=== PATIENT | female | born 1995 | race African-American/Black ===

== ENCOUNTER 2017-04-14 10:36 | Emergency (ER) | payer BC, OTHER ==
[2017-04-14 10:53] VITALS: BP 140/81; PULSE 80; TEMP 98.3; BMI 25.7
--- NOTE | 2017-04-14 11:04 | PDOC ---
History of Present Illness - General Chief Complaint: Cold Symptoms Stated Complaint: COUGH Time Seen by Provider: 04/14/17 11:01 - History of Present Illness Initial Comments: 04/14/17 11:03 21 yo F with no significant pmh who presents with cough. States that she had worsening non productive cough over the past week. Reports 2 episodes of non biliary non bloody emesis yesterday. Endorses myalgias, and recovering from respiratory/sinus illness 3 weeks ago. Reports subjective fevers intermittently through past week. Substernal chest pain from cough. Currently denies pleuritic chest pain, SOB, wheezing, pharyngitis, sinus congestion or pain, ear pain, rhinorhea, postnasal drip, urinary or GI/abdominal complaints. States that she has attempted Tylenol, dextromethorphan, losenges, with little to no relief.Recent sick contact sister with bronchitis treated with antibiotics. Denies h/o asthma. Past History - Past Medical History Allergies/Adverse Reactions: Allergies Allergy/AdvReac Type Severity Reaction Status Date / Time No Known Allergies Allergy Verified 04/14/17 10:51 Home Medications: Ambulatory Orders Albuterol Sulfate Inhaler - [Ventolin Hfa Inhaler -] 1 puff IH QID PRN #1 inhaler 04/14/17 Azithromycin 250 mg PO DAILY 4 Days #4 tablet MDD 1 tab 04/14/17 Asthma: Yes (as a child) Cancer: No Cardiac Disorders: No COPD: No Diabetes: No HTN: No Seizures: No Thyroid Disease: No - Suicide/Smoking/Psychosocial Hx Smoking Status: No Smoking History: Never smoked Have you smoked in the past 12 months: No Number of Cigarettes Smoked Daily: 0 Information on smoking cessation initiated: No Hx Alcohol Use: No Drug/Substance Use Hx: No Substance Use Type: None Hx Substance Use Treatment: No Review of Systems - Review of Systems Comments:: 04/14/17 11:04 GENERAL/CONSTITUTIONAL: No fever or chills. No weakness. HEAD, EYES, EARS, NOSE AND THROAT: No change in vision. No ear pain or discharge. No sore throat.- CARDIOVASCULAR: No chest pain or shortness of breath RESPIRATORY: + cough. No wheezing, or hemoptysis. GASTROINTESTINAL: No nausea, vomiting, diarrhea or constipation. GENITOURINARY: No dysuria, frequency, or change in urination. MUSCULOSKELETAL: + Myalgias. No joint swelling or pain. No neck or back pain. SKIN: No rash NEUROLOGIC: No headache, vertigo, loss of consciousness, or change in strength/ sensation. ENDOCRINE: No increased thirst. No abnormal weight change HEMATOLOGIC/LYMPHATIC: No anemia, easy bleeding, or history of blood clots. ALLERGIC/IMMUNOLOGIC: No hives or skin allergy. *Physical Exam - Vital Signs Last Vital Signs Temp Pulse Resp BP Pulse Ox 98.3 F 80 19 140/81 100 04/14/17 10:48 04/14/17 10:48 04/14/17 10:48 04/14/17 10:48 04/14/17 10:48 - Physical Exam Comments: 04/14/17 11:04 GENERAL: Awake, alert, and fully oriented, in no acute distress HEAD: No signs of trauma, normocephalic, atraumatic EYES: PERRLA, EOMI, sclera anicteric, conjunctiva clear ENT: Auricles normal inspection, hearing grossly normal, nares patent, oropharynx clear without exudates. Mild posterior oropharynx erythema. Moist mucosa NECK: Normal ROM, supple, no lymphadenopathy, JVD, or masses LUNGS: No distress, speaks full sentences, clear to auscultation bilaterally HEART: Regular rate and rhythm, normal S1 and S2, no murmurs, rubs or gallops, peripheral pulses normal and equal bilaterally. EXTREMITIES : Normal inspection, Normal range of motion, no edema. No clubbing or cyanosis. SKIN: Warm, Dry, normal turgor, no rashes or lesions noted. Medical Decision Making - Medical Decision Making 04/14/17 11:38 21 yo F with no significant pmh who presents with 1 week of non productive cough following respiratory/sinus illness 3 weeks ago. Also endorses episodes of non biliary non bloody emesis yesterday evening. Symptoms associated with myalgias, subjective fevers, and susbternal chest pain. No respiratory complaints. Physical exam was benign and patient hemodynamically stable. Recent sick contact sister with bronchitis treated with antibiotics. Denies h/o asthma. Patient most likely with viral bronchitis. ED Course: Urine HCG Neg CXR: No acute cardiopulmonary pathology Patient stable for D/c with return precautions. Sent azithromycin and albuterol to pt. pharmacy. *DC/Admit/Observation/Transfer Diagnosis at time of Disposition: Bronchitis - Discharge Dispostion Disposition: HOME Condition at time of disposition: Stable Admit: No - Prescriptions Prescriptions: Albuterol Sulfate Inhaler - [Ventolin Hfa Inhaler -] 1 puff IH QID PRN #1 inhaler PRN Reason: Asthma Azithromycin 250 mg PO DAILY 4 Days #4 tablet MDD 1 tab - Referrals - Patient Instructions Printed Discharge Instructions: DI for Viral Upper Respiratory Infection-Child Additional Instructions: Please return to the emergency department if you develop new or worsening symptoms or new concerns. Please follow up with primary care physician within 1 week if symptoms persist. Continue symptom management with over the counter NSAID/ Ibuprofen and Tylenol. - Post Discharge Activity - Attestations Physician Attestion: 04/14/17 11:55 I attest to the information provided in this note.
--- NOTE | 2017-04-14 11:24 | PDOC ---
Attending Attestation - Resident Resident Name: Raymond Ayala - ED Attending Attestation I have performed the following: I have examined & evaluated the patient, The case was reviewed & discussed with the resident, I agree w/resident's findings & plan, Exceptions are as noted - HPI HPI: 04/14/17 11:27 21yo F no sig PMH p/w cough. Reports 1 week ago developed non prod cough that has increased in frequency since last week. Reports 2 episodes of NBNB emesis yesterday after coughing. 1 week ago also had rhinorrhea and congestion that has since resolved. Also reports subjective fevers. Tried dextromethorphan and halls cough drops which help. Also taking tylenol. Sister has been diagnosed with bronchitis. Has not seen her PMD. Denies CP, sob, abd pain, rashes, dysuria, bleeding, headache, weakness. - Physicial Exam PE: 04/14/17 11:34 GENERAL: Awake, alert, and fully oriented, in no acute distress HEAD: No signs of trauma EYES: PERRLA, EOMI, sclera anicteric, conjunctiva clear ENT: Auricles normal inspection, hearing grossly normal, nares patent, oropharynx clear with mild erythema but no exudates. Moist mucosa NECK: Normal ROM, supple, no lymphadenopathy, JVD, or masses LUNGS: Breath sounds equal, clear to auscultation bilaterally. No wheezes, and no crackles HEART: Regular rate and rhythm, normal S1 and S2, no murmurs, rubs or gallops ABDOMEN: Soft, nontender, normoactive bowel sounds. No guarding, no rebound. No masses EXTREMITIES: Normal range of motion, no edema. No clubbing or cyanosis. No cords, erythema, or tenderness NEUROLOGICAL: Normal speech, cranial nerves intact, negative pronator drift, 5/ 5 strength in all 4 extremities, normal sensation to light touch in all 4 extremities, normal cerebellar exam, normal gait, normal reflexes and tone SKIN: Warm, Dry, normal turgor, no rashes or lesions noted. - Medical Decision Making 04/14/17 11:35 21-year-old female presents with URI symptoms complaining of cough and posttussive emesis yesterday. Vitals are unremarkable. Exam is unremarkable. Likely bronchitis, will check CXR to r/o PNA -UPT -CXR -likely DC 04/14/17 13:19 UPT neg, CXR clear. Given first dose azithro for bronchitis, prescribed azithro and albuterol for symptomatic control. I discussed the physical exam findings, ancillary test results and final diagnoses with the patient. I answered all of the patient's questions. The patient was satisfied with the care received and felt comfortable with the discharge plan and treatment plan. The patient will call their primary care physician within 24 hours to arrange follow-up and will return to the Emergency Department with any new, persistent or worsening symptoms.
[2017-04-14] MEDS ORDERED: AZITHROMYCIN 500 MG TABLET PO ONE (12:24)
[2017-04-14] MEDS ORDERED: AZITHROMYCIN 500 MG TABLET ONE (12:28)
== END 2017-04-14 13:37 | disposition home or self-care (01) ==
LOC: JERFT 10:36 → JER 10:36
DX: J40 Bronchitis, not specified as acute or chronic (principal)
CPT/HCPCS: 71020-TC; 84703; 99282-25

== ENCOUNTER 2017-10-08 11:45 | Emergency (ER) | payer BC, OTHER ==
[2017-10-08 12:01] VITALS: BP 114/73; PULSE 87; TEMP 98.4; BMI 25.7
[2017-10-08 12:46] LABS: URINE APPEARANCE CLOUDY; URINE BILIRUBIN NEGATIVE (<2.0 mg/dL); URINE COLOR AMBER; URINE GLUCOSE (UA) NEGATIVE (NEGATIVE); URINE KETONE NEGATIVE (NEGATIVE); URINE LEUK ESTERASE NEGATIVE (NEGATIVE); URINE NITRITE NEGATIVE (NEGATIVE); URINE UROBILINOGEN 4.0 E.U/dl mg/dL (0.2-1.0)
[2017-10-08 12:47] LABS: HCG,QUALITATIVE URINE NEGATIVE
[2017-10-08 12:48] LABS: URINE PROTEIN 1+ (NEGATIVE)
[2017-10-08 12:50] LABS: EPI CELLS MANY /HPF (FEW); URINE BACTERIA MANY /hpf (NONE SEEN); URINE MUCUS MANY
--- NOTE | 2017-10-08 12:59 | PDOC ---
History of Present Illness - General Chief Complaint: Pain, Acute Stated Complaint: ABD PAIN Time Seen by Provider: 10/08/17 12:20 History Source: Patient Exam Limitations: No Limitations - History of Present Illness Initial Comments: This is a 21 year old (one prior elective ) with h/o chronic mild constipation who p/w RLQ abdominal pain intermittently for the past two months, worse in the past day or so. She describes the pain as sharp, fluctuating up to 7/10, radiating to her lower back and occasionally down her leg, and worsened with being overly active. She believes that the pain worsened because she was doing laundry all day yesterday, and it became so bad this morning while she was sitting at work that she told her boss about it and was encouraged by them to come into the ED. She notes increased amount of her otherwise normal- appearing non-malodorous vaginal discharge over the past two weeks and was treated by her OB doctor for presumed BV. She took a one-pill course of metronidazole (per the patient's report) one week ago, and was still having symptoms so the OB doctor prescribed Tindamax 4 pills/day for a 2-day course ( just finished the second day). She notes that she has not had a pelvic exam for her symptoms. She notes unchanged chronic constipation and her last BM was 2 days ago, and was otherwise normal (non-bloody and not black). She denies fever , chills, nausea, vomiting, diarrhea, headache, lightheadedness, chest pain, palpitations, SOB, etc. She is currently on her menstrual period. Past History - Past Medical History Allergies/Adverse Reactions: Allergies Allergy/AdvReac Type Severity Reaction Status Date / Time No Known Allergies Allergy Verified 10/08/17 11:57 Home Medications: Ambulatory Orders Albuterol Sulfate Inhaler - [Ventolin Hfa Inhaler -] 1 puff IH QID PRN #1 inhaler 04/14/17 Azithromycin 250 mg PO DAILY 4 Days #4 tablet MDD 1 tab 04/14/17 Asthma: Yes (as a child) Cancer: No Cardiac Disorders: No COPD: No DVT: No Diabetes: No HTN: No Seizures: No Thyroid Disease: No - Suicide/Smoking/Psychosocial Hx Smoking Status: No Smoking History: Never smoked Have you smoked in the past 12 months: No Number of Cigarettes Smoked Daily: 0 Information on smoking cessation initiated: No Hx Alcohol Use: No Drug/Substance Use Hx: No Substance Use Type: None Hx Substance Use Treatment: No Review of Systems - Review of Systems Able to Perform ROS?: Yes Constitutional: No: Chills, Fever, Unexplained wgt Loss HEENTM: No: Nose Congestion, Throat Pain Respiratory: No: Cough, Shortness of Breath Cardiac (ROS): No: Chest Pain, Palpitations ABD/GI: Yes: Constipated (unchanged chronic), Other (abdominal pain). No: Diarrhea, Nausea, Vomiting : Yes: Frequency, Other (vaginal discharge). No: Burning, Dysuria Musculoskeletal: Yes: Back Pain (chronic but worsened lower). No: Neck Pain Integumentary: No: Bruising, Rash Neurological: No: Headache, Numbness, Tingling, Weakness, Dizziness Endocrine: No: Unexplained Weight Gain, Unexplained Weight Loss *Physical Exam - Vital Signs Last Vital Signs Temp Pulse Resp BP Pulse Ox 98.4 F 87 18 114/73 100 10/08/17 11:58 10/08/17 11:58 10/08/17 11:58 10/08/17 11:58 10/08/17 11:58 - Physical Exam General Appearance: Yes: Nourished, Appropriately Dressed, Other (well- appearing and nontoxic young adult female who is pleasant, slightly anxious, answering questions appropriately, no distress, appears comfortable) HEENT: positive: EOMI, [place], Normal Voice, Hearing Grossly Normal. negative: Scleral Icterus (R), Scleral Icterus (L), Nasal Congestion Neck: positive: Trachea midline, Supple. negative: Tender, Rigid Respiratory/Chest: positive: Lungs Clear, Normal Breath Sounds. negative: Respiratory Distress, Crackles, Rhonchi, Stridor, Wheezing Cardiovascular: positive: Regular Rhythm, Regular Rate, S1, S2. negative: Edema , JVD, Murmur Female Pelvic Exam: positive: other (Pelvic exam with physiologic white discharge, os is closed, no CMT, mild right adnexal tenderness) Gastrointestinal/Abdominal: positive: Normal Bowel Sounds, Tender (minimal RLQ ttp just superior to the inguinal crease), Flat, Soft. negative: Organomegaly, Pulsatile Mass, Guarding Musculoskeletal: positive: Normal Inspection. negative: CVA Tenderness, Decreased Range of Motion, Vertebral Tenderness Extremity: positive: Normal Capillary Refill, Normal Inspection, Normal Range of Motion. negative: Tender, Cyanosis Integumentary: positive: Normal Color, Dry, Warm. negative: Erythema, Rash, Bruising Neurologic: positive: field applications specialist II-XII NML intact (grossly), Fully Oriented, Alert, Normal Mood/Affect, Normal Response, Motor Strength 5/5, Other (no tenderness to deep compression of the sciatic nerve) ED Treatment Course - LABORATORY CBC & Chemistry Diagram: 10/08/17 13:15 10/08/17 13:15 - ADDITIONAL ORDERS Additional order review: Laboratory Results 10/08/17 12:25 Urine Color [place] Urine Appearance Cloudy Urine pH 6.0 Ur Specific [place] 1.032 Urine Protein 1+ H Urine Glucose (UA) Negative Urine Ketones Negative Urine Blood Negative Urine Nitrite Negative Urine Bilirubin Negative Urine Urobilinogen 4.0 e.u/dl H Ur Leukocyte Esterase Negative Urine HCG, Qual Negative Medical Decision Making - Medical Decision Making Adult female patient p/w RLQ pain, back pain, vaginal discharge. Initial Vital Signs Temp Pulse Resp BP Pulse Ox 98.4 F 87 18 114/73 100 10/08/17 11:58 10/08/17 11:58 10/08/17 11:58 10/08/17 11:58 10/08/17 11:58 Exam: Mild RLQ ttp, abdomen soft, no guarding, no rebound, no CVA ttp, no right sciatic nerve ttp. Pelvic exam with physiologic white discharge, os is closed, no CMT, mild right adnexal tenderness. DDX IBNLT: ruptured ovarian cyst, large symptomatic ovarian cyst, ovarian torsion, appendicitis, ectopic , PID/TOA, cervicitis, UTI/ pyelonephritis, renal colic, hernia, cholecystitis, pancreatitis, gastritis, PUD , endometritis, malignancy, diverticulitis wwo abscess or perforation, colitis, regional ileitis (Crohns disease), SBO, bowel ischemia, bowel perforation, constipation, musculoskeletal, dysmenorrhea, endometriosis, fibroids, etc. W/U ordered: CBCD CMP GC/Chlam/trich amplification (cervical swab), GC culture, transvaginal US [place] ordered: IVF Unlikely ovarian torsion as patient has no adnexal ttp on bimanual exam. Unlikely ovarian cyst as patient denies h/o ovarian cysts, unlikely hemorrhagic as pt denies sxs of anemia. Unlikely ectopic at patient denies known , no prior procedure or infection. Unlikely PID/TOA/cervicitis as patient denies h/o STIs, no report of abnormal discharge no adnexal ttp Unlikely endometritis as patient is not recently , no procedures, no abnormal discharge. Unlikely hernia as there is no outwardly palpable lump. Unlikely cholecystitis as no postprandial worsening. Unlikely appendicitis as pt has no fever, no anorexia, no marked RLQ or umbilical ttp. Unlikely diverticulitis as patient has no known h/o diverticulosis/ diverticulitis. Unlikely colitis as clinically pts abdomen is not distended/no ascites, no fever, other VS wnl. Laboratory Tests 10/08/17 10/08/17 10/08/17 12:25 13:15 13:15 WBC 5.3 D RBC 4.00 D Hgb 12.8 D Hct 37.0 D MCV 92.4 MCH 32.0 MCHC 34.7 RDW 12.6 D Plt Count 244 D MPV 9.2 Neutrophils % 55.2 D Lymphocytes % 33.6 D Monocytes % 9.9 Eosinophils % 0.6 Basophils % 0.7 D Sodium 139 Potassium 4.9 Chloride 107 Carbon Dioxide 28 Anion Gap 4 L BUN 11 Creatinine 0.8 Creat Clearance w eGFR > 60 Random Glucose 83 Calcium 9.3 Total Bilirubin 0.5 AST 12 L ALT 17 Alkaline Phosphatase 48 Total Protein 7.4 Albumin 4.3 Urine Color [place] Urine Appearance Cloudy Urine pH 6.0 Ur Specific [place] 1.032 Urine Protein 1+ H Urine Glucose (UA) Negative Urine Ketones Negative Urine Blood Negative Urine Nitrite Negative Urine Bilirubin Negative Urine Urobilinogen 4.0 e.u/dl H Ur Leukocyte Esterase Negative Urine WBC (Auto) 2 Urine RBC (Auto) 1 Ur Epithelial Cells Many Urine Bacteria Many Urine Mucus Many Urine HCG, Qual Negative Reassessment: Patient's abdominal pain has much improved, repeat abdominal exam benign. The patient has her US completed but will not stay for official report to result. She signs AMA after discussion on risks of leaving without diagnosis for the abdominal pain. She understands the risks, has decision making capacity, is walking unassisted, repeat exam was benign. She is advised to return to the ED [facility] for her results and to f/u with her outpatient provider(s). *DC/Admit/Observation/Transfer Diagnosis at time of Disposition: Abdominal pain Qualifiers: Abdominal location: right lower quadrant Qualified Code(s): R10.31 - Right lower quadrant pain - Discharge Dispostion Disposition: AGAINST MEDICAL ADVICE Condition at time of disposition: Improved Decision to Admit order: No - Referrals Referrals: Zuleima Diggs DO [Primary Care Provider] - - Patient Instructions Additional Instructions: You were seen in the ER for abdominal pain. We did laboratory work on your blood and urine and gave you a liter of IV fluids. We did an ultrasound, but you needed to leave against medical advice before the results came back. You signed a paper stating that you understand the risks of leaving without having all the results back. Please come back to the ER if you change your mind. Please follow up with your regular PCP doctor in 1-3 days. Call their clinic as soon as possible, tell them you were seen in the ER, and tell them you need an appointment. If you have any new or worsening symptoms, please come back to the ER at any time (24 hours a day). If you are having severe or life threatening symptoms, or symptoms that make it unsafe to drive or have someone drive you, please call 911. - Post Discharge Activity Forms/Work/School Notes: Back to Work
[2017-10-08] MEDS ORDERED: SODIUM CHLORIDE 0.9% 500 ML INFUS.BAG IV ONE (13:09)
--- NOTE | 2017-10-08 13:18 | PDOC ---
Attending Attestation - Resident Resident Name: WoodsLauren - ED Attending Attestation I have performed the following: I have examined & evaluated the patient, The case was reviewed & discussed with the resident, I agree w/resident's findings & plan, Exceptions are as noted - HPI HPI: 10/08/17 13:15 21-year-old female with no past medical history presents with right lower quadrant pain today. Patient reports we cannot this morning and feeling well. While she was at work and a meeting, she felt the sudden onset of a difficult to describe right mid lower abdominal pain. Denies dysuria, hematuria, fevers or chills or nausea or vomiting. Patient does report that she is 2 weeks after her menstrual period. She is not sexually active. Patient does report some mild clearish vaginal discharge but denies dysuria. Came into the ER for an evaluation. - Physicial Exam PE: 10/08/17 13:16 GENERAL: Awake, alert, and fully oriented, in no acute distress. HEAD: No signs of trauma EYES: PERRLA, EOMI, sclera anicteric, conjunctiva clear ENT: Auricles normal inspection, hearing grossly normal, nares patent ABDOMEN: Soft, mild TTP right mid suprapubic tenderness to palpation, mcburney point negative. No guarding, no rebound. No masses EXTREMITIES: Normal range of motion, no edema. No clubbing or cyanosis. No cords, erythema, or tenderness NEUROLOGICAL: Cranial nerves II through XII grossly intact. Normal speech, normal gait SKIN: Warm, Dry, normal turgor, no rashes or lesions noted. - Medical Decision Making 10/08/17 13:17 Vital Signs Temp Pulse Resp BP Pulse Ox 98.4 F 87 18 114/73 100 10/08/17 11:58 10/08/17 11:58 10/08/17 11:58 10/08/17 11:58 10/08/17 11:58 21-year-old female who presents with lower abdominal pain. I clinically suspect this is likely ruptured ovarian cyst. I have low suspicion for appendicitis despite the pain being a right lower abdomen. We'll obtain labs. The resident will perform a pelvic exam. We'll perform a transvaginal ultrasound. If the workup is unremarkable and the patient continues to have pain, we'll consider CT scan the abdomen pelvis to rule out appendicitis. 10/08/17 14:26 Urine Test Results Urine Color [place] 10/08/17 12:25 Urine Appearance Cloudy 10/08/17 12:25 Urine pH 6.0 (5.0-8.0) 10/08/17 12:25 Ur Specific [place] 1.032 (1.001-1.035) 10/08/17 12:25 Urine Protein 1+ (NEGATIVE) H 10/08/17 12:25 Urine Glucose (UA) Negative (NEGATIVE) 10/08/17 12:25 Urine Ketones Negative (NEGATIVE) 10/08/17 12:25 Urine Blood Negative (NEGATIVE) 10/08/17 12:25 Urine Nitrite Negative (NEGATIVE) 10/08/17 12:25 Urine Bilirubin Negative (<2.0 mg/dL) 10/08/17 12:25 Ur Leukocyte Esterase Negative (NEGATIVE) 10/08/17 12:25 Ur Epithelial Cells Many /HPF (FEW) 10/08/17 12:25 Urine Bacteria Many /hpf (NONE SEEN) 10/08/17 12:25 Urine Mucus Many 10/08/17 12:25 IRON PILER exam performed with Dr. Woods. External exam demonstrates physiologic discharge. 10/08/17 16:00 CBC, BMP 10/08/17 13:15 10/08/17 13:15 CMP Sodium 139 mmol/L (136-145) 10/08/17 13:15 Potassium 4.9 mmol/L (3.5-5.1) 10/08/17 13:15 Chloride 107 mmol/L (98-107) 10/08/17 13:15 Carbon Dioxide 28 mmol/L (21-32) 10/08/17 13:15 Anion Gap 4 (8-16) L 10/08/17 13:15 BUN 11 mg/dL (7-18) 10/08/17 13:15 Creatinine 0.8 mg/dL (0.55-1.02) 10/08/17 13:15 Creat Clearance w eGFR > 60 (>60) 10/08/17 13:15 Random Glucose 83 mg/dL (74-106) 10/08/17 13:15 Calcium 9.3 mg/dL (8.5-10.1) 10/08/17 13:15 Total Bilirubin 0.5 mg/dL (0.2-1.0) 10/08/17 13:15 AST 12 U/L (15-37) L 10/08/17 13:15 ALT 17 U/L (12-78) 10/08/17 13:15 Alkaline Phosphatase 48 U/L (45-117) 10/08/17 13:15 Total Protein 7.4 g/dl (6.4-8.2) 10/08/17 13:15 Albumin 4.3 g/dl (3.4-5.0) 10/08/17 13:15 Urine Test Results Urine Color [place] 10/08/17 12:25 Urine Appearance Cloudy 10/08/17 12:25 Urine pH 6.0 (5.0-8.0) 10/08/17 12:25 Ur Specific [place] 1.032 (1.001-1.035) 10/08/17 12:25 Urine Protein 1+ (NEGATIVE) H 10/08/17 12:25 Urine Glucose (UA) Negative (NEGATIVE) 10/08/17 12:25 Urine Ketones Negative (NEGATIVE) 10/08/17 12:25 Urine Blood Negative (NEGATIVE) 10/08/17 12:25 Urine Nitrite Negative (NEGATIVE) 10/08/17 12:25 Urine Bilirubin Negative (<2.0 mg/dL) 10/08/17 12:25 Ur Leukocyte Esterase Negative (NEGATIVE) 10/08/17 12:25 Ur Epithelial Cells Many /HPF (FEW) 10/08/17 12:25 Urine Bacteria Many /hpf (NONE SEEN) 10/08/17 12:25 Urine Mucus Many 10/08/17 12:25 Pt's ultrasound results have not resulted. 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 The patient is signing out AMA. She has capacity and is aware of the risks of leaving without a full evaluation. Otherwise, reports improved pain.
[2017-10-08 13:23] LABS: BASO % 0.7 % (0-2.0); EOS % 0.6 % (0-4.5); HEMOGLOBIN 12.8 GM/dL (10.7-15.3); LYMPH % 33.6 % (8-40); MCHC 34.7 g/dl (32.0-36.0); MEAN CELL VOLUME 92.4 fl (80-96); MEAN PLT VOLUME 9.2 fl (7.5-11.1); MONO % 9.9 % (3.8-10.2); NEUT % 55.2 % (42.8-82.8); PLATELET COUNT 244 K/MM3 (134-434); RDW 12.6 % (11.6-15.6); WHITE BLOOD COUNT 5.3 K/mm3 (4.0-10.0)
[2017-10-08 14:03] LABS: ALBUMIN 4.3 g/dl (3.4-5.0); ANION GAP 4 (8-16); BLOOD UREA NITROGEN 11 mg/dL (7-18); CALCIUM 9.3 mg/dL (8.5-10.1); CHLORIDE 107 mmol/L (98-107); CO2 28 mmol/L (21-32); CREATININE 0.8 mg/dL (0.55-1.02); GLUCOSE,RANDOM 83 mg/dL (74-106); POTASSIUM 4.9 mmol/L (3.5-5.1); SGOT/AST 12 U/L (15-37); SGPT/ALT 17 U/L (12-78); SODIUM 139 mmol/L (136-145)
[2017-10-08 14:04] LABS: ALK PHOS 48 U/L (45-117); BILIRUBIN,TOTAL 0.5 mg/dL (0.2-1.0); TOT PROT 7.4 g/dl (6.4-8.2)
== END 2017-10-08 16:22 | disposition left against medical advice (07) ==
LOC: JER 11:45
PROC: 3E0337Z Introduction of Electrolytic and Water Balance Substance into Peripheral Vein, Percutaneous Approach (ICD-10-PCS; principal; 2017-10-08)
DX: R10.31 Right lower quadrant pain (principal); K59.09 Other constipation
CPT/HCPCS: 36415; 76830-TC; 80053; 81003; 81015; 84703; 85025; 96374; 99283-25

== ENCOUNTER 2018-02-17 10:11 | Emergency (ER) | payer BC, OTHER ==
[2018-02-17 10:29] VITALS: BP 107/63; PULSE 77; TEMP 98.9; BMI 24.0
[2018-02-17] MEDS ORDERED: ACETAMINOPHEN 500 MG TABLET (FP) PO ONE (10:42)
[2018-02-17] MEDS ORDERED: ACETAMINOPHEN 500 MG TABLET (FP) ONE (10:47)
--- NOTE | 2018-02-17 10:48 | PDOC ---
History of Present Illness - General Chief Complaint: Sore Throat Stated Complaint: FEVER/STREP THROAT Time Seen by Provider: 02/17/18 10:35 History Source: Patient Exam Limitations: No Limitations - History of Present Illness Timing/Duration: unsure Severity: mild, moderate Past History - Travel Traveled outside of the country in the last 30 days: No Close contact w/someone who was outside of country & ill: No - Past Medical History Allergies/Adverse Reactions: Allergies Allergy/AdvReac Type Severity Reaction Status Date / Time No Known Allergies Allergy Verified 02/17/18 10:26 Home Medications: Ambulatory Orders NK [No Known Home Medication] 02/17/18 Asthma: Yes (as a child) Cancer: No Cardiac Disorders: No COPD: No DVT: No Diabetes: No HTN: No Seizures: No Thyroid Disease: No - Suicide/Smoking/Psychosocial Hx Smoking Status: No Smoking History: Never smoked Have you smoked in the past 12 months: No Number of Cigarettes Smoked Daily: 0 Hx Alcohol Use: No Drug/Substance Use Hx: No Substance Use Type: None Hx Substance Use Treatment: No Review of Systems - Review of Systems Able to Perform ROS?: Yes Is the patient limited Liberian proficient: Yes Constitutional: Yes: Symptoms Reported, See HPI, Chills, Fever, Malaise HEENTM: Yes: See HPI, Throat Pain, Difficulty Swallowing. No: Symptoms Reported Respiratory: Yes: Symptoms reported, See HPI. No: Cough Musculoskeletal: No: Symptoms Reported Integumentary: Yes: See HPI. No: Symptoms Reported, Bruising, Rash Neurological: Yes: Symptoms reported, See HPI, Headache All Other Systems: Reviewed and Negative *Physical Exam - Vital Signs Last Vital Signs Temp Pulse Resp BP Pulse Ox 98.9 F 77 16 107/63 99 02/17/18 10:26 02/17/18 10:26 02/17/18 10:26 02/17/18 10:26 02/17/18 10:26 - Physical Exam General Appearance: Yes: Nourished, Appropriately Dressed, Apparent Distress, Mild Distress, Moderate Distress HEENT: positive: LORENA, TMs Normal, Pharyngeal Erythema, Tonsillar Erythema, Nasal Congestion, Rhinorrhea. negative: Normal ENT Inspection, Pharynx Normal, Tonsillar Exudate Neck: positive: Supple. negative: Tender Respiratory/Chest: positive: Lungs Clear, Normal Breath Sounds Gastrointestinal/Abdominal: positive: Soft. negative: Normal Bowel Sounds Musculoskeletal: positive: Normal Inspection. negative: CVA Tenderness Extremity: positive: Normal Capillary Refill, Normal Inspection Integumentary: positive: Dry, Warm, Pale. negative: Rash Neurologic: positive: buyer planner II-XII NML intact, Fully Oriented, Alert, Normal Mood/ Affect, Normal Response, Motor Strength /5 Medical Decision Making - Medical Decision Making 02/17/18 10:48 Rapid strep test negative, will hold antibiotics until culture reports known. 02/17/18 11:23 *DC/Admit/Observation/Transfer Diagnosis at time of Disposition: Pharyngitis, acute Qualifiers: Pharyngitis/tonsillitis etiology: unspecified etiology Qualified Code(s): J02.9 - Acute pharyngitis, unspecified - Discharge Dispostion Disposition: HOME Condition at time of disposition: Stable Decision to Admit order: No - Referrals - Patient Instructions Printed Discharge Instructions: DI for Pharyngitis/Tonsillopharyngitis -- Adult Additional Instructions: Rest, drink lots of fluids: Teas, water, soups Eat cold things: Ice cream, ice pops, ice chips Saltwater gargles Steamy showers/seem to face break up mucus Avoid contact with others until fevers and pain resolved Lots of handwashing and good hygiene, this is contagious Call Melani tomorrow at [phone] for preliminary results of throat culture. - If antibiotics are needed, we can call them to pharmacy. Tylenol or Motrin for fever and pain Followup with private physician in one to 2 days as needed if not improving Return to emergency department for worsened symptoms, fevers, dehydration - Post Discharge Activity Forms/Work/School Notes: Back to Work
== END 2018-02-17 11:32 | disposition home or self-care (01) ==
LOC: JERFT 10:11
DX: J02.9 Acute pharyngitis, unspecified (principal); J45.909 Unspecified asthma, uncomplicated
CPT/HCPCS: 87070; 87430; 99281-25

== ENCOUNTER 2018-02-20 09:36 | Emergency (ER) | payer BC, OTHER ==
[2018-02-20 09:41] VITALS: BP 105/75; PULSE 74; TEMP 97.8; BMI 24.0
--- NOTE | 2018-02-20 10:03 | PDOC ---
History of Present Illness - General Chief Complaint: Eye Problem Stated Complaint: EYE PROBLEM Time Seen by Provider: 02/20/18 09:40 History Source: Patient Exam Limitations: No Limitations - History of Present Illness Initial Comments: 02/20/18 10:00 c/o bilateral pink eye with itching and discharge, pt also has nasal congestion Past History - Past Medical History Allergies/Adverse Reactions: Allergies Allergy/AdvReac Type Severity Reaction Status Date / Time No Known Allergies Allergy Verified 02/17/18 10:26 Home Medications: Ambulatory Orders Sulfacetamide Sodium 10% [Bleph-10] 1 drop OU Q4H 7 Days #2 bottle 02/20/18 Asthma: Yes (as a child) Cancer: No Cardiac Disorders: No COPD: No DVT: No Diabetes: No HTN: No Seizures: No Thyroid Disease: No - Suicide/Smoking/Psychosocial Hx Smoking Status: No Smoking History: Unknown if ever smoked Have you smoked in the past 12 months: No Number of Cigarettes Smoked Daily: 0 Hx Alcohol Use: No Drug/Substance Use Hx: No Substance Use Type: None Hx Substance Use Treatment: No *Physical Exam - Vital Signs Last Vital Signs Temp Pulse Resp BP Pulse Ox 97.8 F 74 18 105/75 99 02/20/18 09:40 02/20/18 09:40 02/20/18 09:40 02/20/18 09:40 02/20/18 09:40 - Physical Exam General Appearance: Yes: Nourished, Appropriately Dressed HEENT: positive: EOMI, LORENA, Pharynx Normal, Nasal Congestion, Rhinorrhea, Other (bilateral conjunctival erythema, injected with crusted discharge hinkle color) Neck: positive: Supple Respiratory/Chest: positive: Lungs Clear, Normal Breath Sounds Cardiovascular: positive: Regular Rhythm, Regular Rate Integumentary: positive: Normal Color, Dry, Warm Neurologic: positive: Fully Oriented, Alert, Normal Mood/Affect, Normal Response , Motor Strength 5/5 *DC/Admit/Observation/Transfer Diagnosis at time of Disposition: Nasal congestion Conjunctivitis Qualifiers: Conjunctivitis type: acute Acute conjunctivitis type: viral Laterality: bilateral Qualified Code(s): B30.9 - Viral conjunctivitis, unspecified - Discharge Dispostion Disposition: HOME Condition at time of disposition: Good - Prescriptions Prescriptions: Sulfacetamide Sodium 10% [Bleph-10] 1 drop OU Q4H 7 Days #2 bottle - Referrals - Patient Instructions Printed Discharge Instructions: DI for Conjunctivitis Additional Instructions: wash hands well, wash towels, pillowcases use the drops as directed for 5-7 days use over the counter Flonase or Nasacort or Zycam any nasal decongestant spray - Post Discharge Activity Forms/Work/School Notes: Back to Work
== END 2018-02-20 10:07 | disposition home or self-care (01) ==
LOC: JERFT 09:36
DX: B30.9 Viral conjunctivitis, unspecified (principal)
CPT/HCPCS: 99281-25

== ENCOUNTER 2018-07-15 09:36 | Emergency (ER) | payer BC, OTHER ==
[2018-07-15 09:48] VITALS: BP 102/68; PULSE 92; TEMP 98.3; BMI 24.0
--- NOTE | 2018-07-15 10:27 | PDOC ---
History of Present Illness - General Chief Complaint: Cold Symptoms Stated Complaint: COUGHING Time Seen by Provider: 07/15/18 10:21 History Source: Patient Exam Limitations: No Limitations - History of Present Illness Initial Comments: 07/15/18 10:56 Patient came to emergency department for evaluation of fever, chills, body aches , moist nonproductive cough, ear and throat pain that started last Saturday. States over the weekend was much worse and is progressively improving but concerned may have some type of infection. Past History - Travel Traveled outside of the country in the last 30 days: No Close contact w/someone who was outside of country & ill: No - Past Medical History Allergies/Adverse Reactions: Allergies Allergy/AdvReac Type Severity Reaction Status Date / Time No Known Allergies Allergy Verified 07/15/18 09:44 Home Medications: Ambulatory Orders NK [No Known Home Medication] 07/15/18 Asthma: Yes (as a child) Cancer: No Cardiac Disorders: No COPD: No DVT: No Diabetes: No HTN: No Seizures: No Thyroid Disease: No - Suicide/Smoking/Psychosocial Hx Smoking Status: No Smoking History: Never smoked Have you smoked in the past 12 months: No Number of Cigarettes Smoked Daily: 0 Hx Alcohol Use: No Drug/Substance Use Hx: No Substance Use Type: None Hx Substance Use Treatment: No *Physical Exam - Vital Signs Last Vital Signs Temp Pulse Resp BP Pulse Ox 98.3 F 92 H 17 102/68 97 07/15/18 09:44 07/15/18 09:44 07/15/18 09:44 07/15/18 09:44 07/15/18 09:44 - Physical Exam Comments: 07/15/18 10:56 GENERAL: [The child is awake, alert, and appropriately interactive.] EYES: [The pupils are equal, round, and reactive to light, with clear, conjunctiva.but glassy] NOSE: [The nose with clear drainage EARS: [The ear canals and tympanic membranes are congested but landmarks easily visualed ] THROAT: [The oropharynx is clear with erythema, no exudates. The mucous membranes are moist.] NECK: [The neck is supple with mildly tender adenopathy, no menigemous] CHEST: [The lungs are coarse but clear without crackles, or wheezes.] HEART: [Heart is regular rhythm, with normal S1 and S2, no murmurs.] ABDOMEN: [The abdomen is soft and nontender with normal bowel sounds. There is no organomegaly and no mass. There is no guarding or rebound.] EXTREMITIES: [Extremities are normal.] NEURO: [Behavior is normal for age.cranky but easily,m Tone is normal.] SKIN: [Skin is unremarkable without rash or swelling. There is no bruising, and there are no other signs of injury.] General Appearance: Yes: Appropriately Dressed Moderate Sedation - Procedure Monitoring Vital Signs: Procedure Monitoring Vital Signs Temperature 98.3 F 07/15/18 09:44 Pulse Rate 92 H 07/15/18 09:44 Respiratory Rate 17 07/15/18 09:44 Blood Pressure 102/68 07/15/18 09:44 O2 Sat by Pulse Oximetry (%) 97 07/15/18 09:44 *DC/Admit/Observation/Transfer Diagnosis at time of Disposition: Influenzal acute upper respiratory infection - Discharge Dispostion Disposition: HOME Condition at time of disposition: Stable Decision to Admit order: No - Referrals - Patient Instructions Printed Discharge Instructions: DI for Viral Upper Respiratory Infection -- Adult Additional Instructions: Rest, drink lots of fluids: Teas, water, soups, Pedialyte Saltwater gargles Steamy showers/seem to face break up mucus Old-fashioned treatments help! Avoid contact with others until fevers and cough resolved as this is very contagious Lots of handwashing and good hygiene Continue [id number] medications for symptomatic relief Tylenol or Motrin for fever and pain Followup with private physician in one to 2 days as needed or if worsening Return to emergency department for worsened symptoms, fevers, dehydration Influenza takes between 5 and 7 days for resolution To not participate in any activity, work, or school until fevers and cough are gone for at least one day - Post Discharge Activity Forms/Work/School Notes: Back to Work
[2018-07-15] MEDS ORDERED: IBUPROFEN 600 MG TABLET (FP) PO ONE ×2 (10:55→11:09)
== END 2018-07-15 11:14 | disposition home or self-care (01) ==
LOC: JERFT 09:36
DX: J11.1 Influenza due to unidentified influenza virus with other respiratory manifestations (principal)
CPT/HCPCS: 99281-25